=== PATIENT | male | born 1975 | race Caucasian/White ===

== ENCOUNTER 2019-05-13 11:29 | Observation (INO) | payer MEDICARE, OTHER ==
[~2019-05-13] VITALS: Ht 175.3 cm; Wt 182.1 kg
[~2019-05-13 11:29] MED LIST: ASPI-496 PO; BUPR100T11 PO; CLOP75TA52 PO; ISOS20TA3 PO; ISOS60TA36 PO; LACT1CAP35 PO; LISI-170 PO; LISI5TAB7 PO; METH500T7 PO; METH750T2 PO; METO25TA35 PO; PRED20TA PO; ROSU40TA PO; TRAZ-137 PO; TRAZ50TA66 PO
--- NOTE | 2019-05-13 11:43 | NUR ---
1130 Pt arrived to room with [facility] medic x2; received report; VSS; patient reports left sided chest pressure x 1 hr; but no sharp pain, Pt reports no respiratory distress; confirmed by SPo2 with o2> 96% on RA. Patient took own nitro x2 at home; with little relief; ASA 324 adminstered by medics en route; IV established en route and 200 mL NS adminstered. Patient transferred under own power; felt pain increase with exertion; reports history of VT with stent; pt connected to monitor; Dr. Nguyen to bedside for assessment; orders received; EKG complete reviewed by MD; CXR complete; lab at bedside. Awaiting results
[2019-05-13] MEDS ORDERED: ONDANSETRON 2MG/ML, 2ML IVPush ONE (12:00)
[2019-05-13] MEDS ORDERED: SODIUM CHLORIDE FLUSH 10ML SYR IVF ONE (12:00)
[2019-05-13] MEDS ORDERED: MORPHINE SULFATE 4 MG/ML, 1ML IVPush PRN (12:00)
[2019-05-13] MEDS ORDERED: NITROGLYCERIN SINGLE TAB 0.4 MG SL PRN (12:00)
[2019-05-13] MEDS ORDERED: ONDANSETRON 2MG/ML, 2ML ONE (12:12)
[2019-05-13 12:13] LABS: INTERNATIONAL NORMALIZED RATIO 0.95 (0.93-1.1)
[2019-05-13] MEDS ORDERED: MORPHINE SULFATE 4 MG/ML, 1ML ONE (12:13)
[2019-05-13] MEDS ORDERED: NITROGLYCERIN SINGLE TAB 0.4 MG SL ONE (12:14)
[2019-05-13 12:15] LABS: ALANINE AMINOTRANSFERASE 38 U/L (12-78); ALBUMIN 3.4 g/dL (3.4-5.0); ANION GAP 9 mmol/L (5-15); CALCIUM 8.9 mg/dL (8.5-10.1); CHLORIDE 107 mmol/L (98-107); CREATININE 1.05 mg/dL (0.7-1.3)
[2019-05-13 12:20] LABS: ALKALINE PHOSPHATASE 194 U/L (45-117); BILIRUBIN,TOTAL 0.5 mg/dL (0.2-1.0); TOTAL PROTEIN 7.3 g/dL (6.4-8.2); TROPONIN I < 0.015 ng/mL (0.000-0.045)
--- NOTE | 2019-05-13 12:26 | NUR ---
Administered nitro, morphine, zofran per MD order; vss; pt reports no new distress and morphine is helping
--- NOTE | 2019-05-13 12:59 | NUR ---
pt's arrived and is sitting at bs. lab to bs to draw. is short with staff and continues to make comments under breath. states that she would like the pt transferred to a different hospital. this rn asked pt if he would like to be transferred to a different hospital. pt replied, "No, I'm fine." vss. pt reports pain decrease to 7/10 but states that he still feels pressure in this chest and throat. no requests at this time from pt or . labs drawn successfully. awaiting results.
[2019-05-13 13:21] LABS: BASOPHILS # (AUTO) 0.12 x10^3/uL (0-0.1); BASOPHILS % (AUTO) 1 % (0-1); EOSINOPHILS # (AUTO) 0.09 x10^3/uL (0-0.4); EOSINOPHILS % (AUTO) 1 % (1-7); LYMPHOCYTES # (AUTO) 1.65 x10^3/uL (1-3.4); LYMPHOCYTES % (AUTO) 16 % (22-44); MD NO; MEAN CORPUSCULAR HEMOGLOBIN 26.8 pg (27.5-34.5); MEAN CORPUSCULAR HGB CONC 31.9 g/dL (33.2-36.2); MEAN CORPUSCULAR VOLUME 84.2 fL (81-97); MEAN PLATELET VOLUME 7.4 fL (7.4-10.4); MONOCYTES # (AUTO) 0.83 x10^3/uL (0.2-0.8); MONOCYTES % (AUTO) 8 % (2-9); NEUTROPHILS # (AUTO) 7.44 x10^3/uL (1.8-6.8); NEUTROPHILS % (AUTO) 74 % (42-75); PLATELET COUNT 342 x10^3/uL (130-400); RED CELL DISTRIBUTION WIDTH 16.8 % (9.4-14.8)
--- NOTE | 2019-05-13 13:28 | NUR ---
ALL RESUTLS BACK AT THIS TIME. CHART UP FOR RECHECK.
--- NOTE | 2019-05-13 13:38 | NUR ---
Registration was at bedside; spouse at bedside; patient sleeping; easily aroused and reports pain improving
[2019-05-13] MEDS ORDERED: SODIUM CHLORIDE FLUSH 10ML SYR IVF PRN (14:00)
--- NOTE | 2019-05-13 14:05 | NUR ---
PT AND EDUCATED THAT CURTAIN NEEDS TO REMAIN OPEN APPROXIMATELY 6 INCHES FOR VISUALIZATION OF MONITOR. PT'S CONTINUES TO CLOSE CURTAIN AFTER BEING ASKED MULTIPLE TIMES NOT TO CLOSE CURTAIN. PT AND INFORMED THAT IF CONTINUES TO IMPEDE PATIENT CARE, SHE WILL BE ASKED TO LEAVE. CHARGE AWARE OF SITUATION.
[2019-05-13] MEDS ORDERED: FERR-4 PO (14:19)
[2019-05-13] MEDS ORDERED: METO25TA35 PO (14:19)
[2019-05-13] MEDS ORDERED: ATOR-2 PO (14:19)
[2019-05-13] MEDS ORDERED: SERT50TA28 PO (14:19)
[2019-05-13] MEDS ORDERED: ASPI1CPM7 PO (14:19)
[2019-05-13] MEDS ORDERED: METF500T17 PO (14:19)
--- NOTE | 2019-05-13 14:19 | NUR ---
Med rec complete; patient resting; reports pain has improved; resting comfortably; agreeable to admit
[2019-05-13] MEDS ORDERED: CYAN100028 PO (14:21)
[2019-05-13] MEDS ORDERED: CHOL3000 PO (14:21)
--- NOTE | 2019-05-13 14:45 | NUR ---
report given to Katrina on telemetry; all questions answered plan of care covered; patient ready for transport
[2019-05-13 15:12] VITALS: BP 111/74
[2019-05-13] MEDS ORDERED: ONDANSETRON 2MG/ML, 2ML IVPush PRN (17:00)
[2019-05-13] MEDS ORDERED: ONDANSETRON ODT 4 MG PO PRN (17:00)
[2019-05-13] MEDS ORDERED: ACETAMINOPHEN 325 MG TABLET PO PRN (17:00)
[2019-05-13 17:49] LABS: TROPONIN I < 0.015 ng/mL (0.000-0.045)
[2019-05-13 17:59] LABS: HEMOGLOBIN A1C 6.2 % (4.2-6.3)
[2019-05-13 18:31] VITALS: BP 107/71
[2019-05-13] MEDS: ASPIRIN/DIPYRIDAMOLE 25MG/200MG CAPSULE PO SCH (20:28)
[2019-05-13] MEDS: METOPROLOL TARTRATE 25 MG TABLET PO SCH (20:29)
[2019-05-13] MEDS: INSULIN LISPRO 100 UNITS/ML, PEN SQ-INSULIN SCH (20:32)
[2019-05-13] MEDS ORDERED: ATORVASTATIN 80 MG TABLET PO SCH (21:00)
[2019-05-14 01:11] VITALS: BP 105/65
[2019-05-14 01:55] LABS: TROPONIN I < 0.015 ng/mL (0.000-0.045)
[2019-05-14] MEDS: INSULIN LISPRO 100 UNITS/ML, PEN SQ-INSULIN SCH (07:00)
[2019-05-14 07:06] VITALS: BP 104/73
[2019-05-14] MEDS ORDERED: CYANOCOBALAMIN 1,000 MCG TABLET PO SCH (09:00)
[2019-05-14] MEDS ORDERED: FERROUS SULFATE 325 MG TABLET PO SCH (09:00)
[2019-05-14] MEDS ORDERED: LISINOPRIL 20 MG TABLET PO SCH (09:00)
[2019-05-14] MEDS ORDERED: SERTRALINE 50MG TABLET PO SCH (09:00)
[2019-05-14] MEDS ORDERED: CHOLECALCIFEROL 1,000 UNIT TABLET PO SCH (09:00)
[2019-05-14] MEDS: ASPIRIN/DIPYRIDAMOLE 25MG/200MG CAPSULE PO SCH (09:43)
[2019-05-14] MEDS: METOPROLOL TARTRATE 25 MG TABLET PO SCH (09:44)
== END 2019-05-14 12:40 | disposition home or self-care (01) ==
LOC: ED 13:29 → EDIP 13:59 → INTOOBSV 13:59 → 5SO 15:07 → DCLOUNGE 05-14 12:37
PROVIDERS: ADMIT Hospitalist; ATTEND Hospitalist
DX: I25.110 Atherosclerotic heart disease of native coronary artery with unstable angina pectoris (principal); I10 Essential (primary) hypertension; E78.5 Hyperlipidemia, unspecified; E11.9 Type 2 diabetes mellitus without complications; F43.10 Post-traumatic stress disorder, unspecified; M54.5 Low back pain; G89.29 Other chronic pain; G47.33 Obstructive sleep apnea (adult) (pediatric); E66.01 Morbid (severe) obesity due to excess calories; I25.2 Old myocardial infarction; E78.00 Pure hypercholesterolemia, unspecified; Z68.43 Body mass index [BMI] 50.0-59.9, adult; Z79.84 Long term (current) use of oral hypoglycemic drugs; Z87.891 Personal history of nicotine dependence; Z88.8 Allergy status to other drugs, medicaments and biological substances; Z91.018 Allergy to other foods; Z90.49 Acquired absence of other specified parts of digestive tract; Z86.73 Personal history of transient ischemic attack (TIA), and cerebral infarction without residual deficits; Z95.5 Presence of coronary angioplasty implant and graft; Z79.899 Other long term (current) drug therapy
CPT/HCPCS: 36415; 71045; 80053; 82962; 83036; 83880; 84443; 84484; 85025; 85610; 85730; 93005; 96374; 96375; 99284; G0378; J2270; J2405

== ENCOUNTER 2019-11-22 19:28 | Emergency (ER) | payer MEDICARE, OTHER ==
[~2019-11-22] VITALS: Ht 175.3 cm; Wt 188.2 kg
[~2019-11-22 19:28] MED LIST changes: +ASPI1CPM7 PO; +ATOR-2 PO; +CHOL3000 PO; +CYAN100028 PO; +FERR-4 PO; +METF500T17 PO; +SERT50TA28 PO
[2019-11-22 19:32] VITALS: BP 112/67
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
[2019-11-22] MEDS ORDERED: ASPIRIN 81 MG TABLET CHEW PO ONE (20:00)
[2019-11-22] MEDS ORDERED: SODIUM CHLORIDE FLUSH 10ML SYR IVF ONE (20:00)
[2019-11-22] MEDS ORDERED: HYDROcodone/APAP 5/325 TABLET PO ONE (20:00)
[2019-11-22] MEDS ORDERED: HYDROcodone/APAP 5/325 TABLET ONE (20:01)
[2019-11-22] MEDS ORDERED: ASPIRIN 81 MG TABLET CHEW ONE (20:01)
--- NOTE | 2019-11-22 20:04 | NUR ---
PT IN RADIOLOGY
[2019-11-22 20:08] LABS: BASOPHILS # (AUTO) 0.05 x10^3/uL (0-0.1); BASOPHILS % (AUTO) 1 % (0-1); EOSINOPHILS # (AUTO) 0.24 x10^3/uL (0-0.4); EOSINOPHILS % (AUTO) 2 % (1-7); LYMPHOCYTES # (AUTO) 2.07 x10^3/uL (1-3.4); LYMPHOCYTES % (AUTO) 20 % (22-44); MD NO; MEAN CORPUSCULAR HGB CONC 32.4 g/dL (33.2-36.2); MEAN CORPUSCULAR VOLUME 86.4 fL (81-97); MONOCYTES # (AUTO) 0.91 x10^3/uL (0.2-0.8); MONOCYTES % (AUTO) 9 % (2-9); NEUTROPHILS # (AUTO) 7.11 x10^3/uL (1.8-6.8); NEUTROPHILS % (AUTO) 69 % (42-75); PLATELET COUNT 359 x10^3/uL (130-400); RED BLOOD COUNT 4.77 x10^6/uL (4.38-5.82)
[2019-11-22 20:21] LABS: ALANINE AMINOTRANSFERASE 37 U/L (12-78); ALBUMIN 3.2 g/dL (3.4-5.0); ANION GAP 9 mmol/L (5-15); CALCIUM 8.1 mg/dL (8.5-10.1); CHLORIDE 109 mmol/L (98-107); CREATININE 0.98 mg/dL (0.7-1.3)
[2019-11-22 20:25] LABS: ALKALINE PHOSPHATASE 203 U/L (45-117); BILIRUBIN,TOTAL 0.4 mg/dL (0.2-1.0); TOTAL PROTEIN 7.5 g/dL (6.4-8.2); TROPONIN I < 0.015 ng/mL (0.000-0.045)
[2019-11-22] MEDS ORDERED: METHOCARBAMOL 750 MG TABLET ONE (20:48)
[2019-11-22] MEDS ORDERED: METHOCARBAMOL 750 MG TABLET PO ONE (21:00)
== END 2019-11-22 21:01 | disposition home or self-care (01) ==
LOC: ED 20:55
DX: S40.012A Contusion of left shoulder, initial encounter (principal); S70.02XA Contusion of left hip, initial encounter; R07.89 Other chest pain; I10 Essential (primary) hypertension; E11.9 Type 2 diabetes mellitus without complications; E78.5 Hyperlipidemia, unspecified; W01.0XXA Fall on same level from slipping, tripping and stumbling without subsequent striking against object, initial encounter; Y93.89 Activity, other specified; Y92.410 Unspecified street and highway as the place of occurrence of the external cause; Y99.8 Other external cause status
CPT/HCPCS: 36415; 71046; 72050; 72110; 80053; 83880; 84484; 85025; 93005; 99284

== ENCOUNTER 2019-12-01 15:51 | Emergency (ER) | payer MEDICARE, OTHER ==
[~2019-12-01] VITALS: Ht 175.3 cm; Wt 188.6 kg
[2019-12-01] MEDS ORDERED: ACETAMINOPHEN 325 MG TABLET PO ONE (16:00)
[2019-12-01 16:36] LABS: BASOPHILS # (AUTO) 0.02 x10^3/uL (0-0.1); BASOPHILS % (AUTO) 0 % (0-1); EOSINOPHILS # (AUTO) 0.14 x10^3/uL (0-0.4); EOSINOPHILS % (AUTO) 2 % (1-7); LYMPHOCYTES # (AUTO) 0.82 x10^3/uL (1-3.4); LYMPHOCYTES % (AUTO) 12 % (22-44); MD NO; MEAN CORPUSCULAR HEMOGLOBIN 27.8 pg (27.5-34.5); MEAN CORPUSCULAR HGB CONC 32.3 g/dL (33.2-36.2); MEAN CORPUSCULAR VOLUME 86.1 fL (81-97); MEAN PLATELET VOLUME 7.5 fL (7.4-10.4); MONOCYTES # (AUTO) 0.83 x10^3/uL (0.2-0.8); MONOCYTES % (AUTO) 12 % (2-9); NEUTROPHILS # (AUTO) 5.14 x10^3/uL (1.8-6.8); NEUTROPHILS % (AUTO) 74 % (42-75); PLATELET COUNT 314 x10^3/uL (130-400); RED BLOOD COUNT 4.71 x10^6/uL (4.38-5.82); RED CELL DISTRIBUTION WIDTH 16.6 % (9.4-14.8)
[2019-12-01 16:44] LABS: ALANINE AMINOTRANSFERASE 32 U/L (12-78); ALBUMIN 3.3 g/dL (3.4-5.0); ANION GAP 6 mmol/L (5-15); CALCIUM 8.6 mg/dL (8.5-10.1); CHLORIDE 105 mmol/L (98-107); CREATININE 0.99 mg/dL (0.7-1.3)
[2019-12-01 16:49] LABS: ALKALINE PHOSPHATASE 193 U/L (45-117); BILIRUBIN,TOTAL 0.4 mg/dL (0.2-1.0); TOTAL PROTEIN 7.6 g/dL (6.4-8.2); TROPONIN I < 0.015 ng/mL (0.000-0.045)
[2019-12-01] MEDS ORDERED: ACETAMINOPHEN 325 MG TABLET ONE (17:01)
[2019-12-01 17:05] VITALS: BP 123/79
--- NOTE | 2019-12-01 17:06 | NUR ---
FROM LOBBY TO ROOM AT THIS TIME
--- NOTE | 2019-12-01 17:09 | NUR ---
PT PRESENTING TO ER FOR PRODUCTIVE COUGH X2 DAYS, FEVER, GONZALES AND UPON COMING INTO ROOM LEFT GROIN PAIN WHILE VOIDING. CONNECTED TO ALL MONITORING, TCHY HR NOTED, FEBRILE @100.8. TYLENOL GIVEN PER JAN. AT BEDSIDE. CALL LIGHT WITHIN REACH. LABS RESULTED, RAD COMPLETED. AWAITING MD ASSESSMENT AND FURTHER ORDERS
--- NOTE | 2019-12-01 17:37 | NUR ---
MD AT BEDSIDE FOR ASSESSMENT. AWAITING FURTHER ORDERS
[2019-12-01 17:49] LABS: MICROSCOPIC NOT IND
[2019-12-01 17:56] LABS: CULTURE INDICATED? NO
[2019-12-01 18:08] LABS: RAPID INFLUENZA A POSITIVE (Negative); RAPID INFLUENZA B Negative (Negative)
--- NOTE | 2019-12-01 18:42 | NUR ---
MD TO BEDSIDE FOR RECHECK. PT READY FOR DC HOME WITH AT THIS TIME
== END 2019-12-01 18:51 | disposition home or self-care (01) ==
LOC: ED 18:40
DX: J10.1 Influenza due to other identified influenza virus with other respiratory manifestations (principal); I10 Essential (primary) hypertension; E11.9 Type 2 diabetes mellitus without complications; Z87.891 Personal history of nicotine dependence
CPT/HCPCS: 36415; 71045; 80053; 81003; 83605; 83880; 84484; 85025; 87040; 87400; 93005; 99284

== ENCOUNTER 2020-05-01 13:25 | Emergency (ER) | payer MEDICARE, OTHER ==
[~2020-05-01] VITALS: Ht 175.3 cm; Wt 194.3 kg
[~2020-05-01 13:25] MED LIST changes: -TRAZ-137 PO; +TRAZ-175 PO
--- NOTE | 2020-05-01 14:25 | NUR ---
TASK RN NOTE: PT BACK TO ROOM VIA WHEELCHAIR. LEFT LEG PAIN X3 WEEKS AFTER GLF. HX OF ISCHEMIC STROKE IN MAY 2012. NO WOB NOTED. USUALLY USES WALKER OR WHEELCHAIR AT HOME.
[2020-05-01] MEDS ORDERED: HYDROcodone/APAP 5/325 TABLET PO ONE (15:00)
[2020-05-01] MEDS ORDERED: HYDROcodone/APAP 5/325 TABLET ONE (15:01)
[2020-05-01 15:54] LABS: BASOPHILS # (AUTO) 0.06 x10^3/uL (0-0.1); BASOPHILS % (AUTO) 1 % (0-1); EOSINOPHILS # (AUTO) 0.29 x10^3/uL (0-0.4); EOSINOPHILS % (AUTO) 3 % (1-7); LYMPHOCYTES # (AUTO) 1.47 x10^3/uL (1-3.4); LYMPHOCYTES % (AUTO) 13 % (22-44); MD NO; MEAN CORPUSCULAR HEMOGLOBIN 27.6 pg (27.5-34.5); MEAN CORPUSCULAR HGB CONC 32.9 g/dL (33.2-36.2); MEAN CORPUSCULAR VOLUME 83.9 fL (81-97); MEAN PLATELET VOLUME 7.8 fL (7.4-10.4); MONOCYTES # (AUTO) 0.81 x10^3/uL (0.2-0.8); MONOCYTES % (AUTO) 7 % (2-9); NEUTROPHILS % (AUTO) 77 % (42-75); PLATELET COUNT 327 x10^3/uL (130-400); RED CELL DISTRIBUTION WIDTH 16.7 % (9.4-14.8)
[2020-05-01 16:00] VITALS: BP 127/79
[2020-05-01 16:01] LABS: ALBUMIN 3.1 g/dL (3.4-5.0); ANION GAP 7 mmol/L (5-15); CALCIUM 8.3 mg/dL (8.5-10.1); CHLORIDE 106 mmol/L (98-107); CREATININE 1.01 mg/dL (0.7-1.3)
[2020-05-01 16:05] LABS: MICROSCOPIC NOT IND
== END 2020-05-01 17:16 | disposition home or self-care (01) ==
LOC: ED 15:31
DX: M25.562 Pain in left knee (principal); M79.89 Other specified soft tissue disorders; I10 Essential (primary) hypertension; E11.9 Type 2 diabetes mellitus without complications; E78.5 Hyperlipidemia, unspecified; Z86.73 Personal history of transient ischemic attack (TIA), and cerebral infarction without residual deficits
CPT/HCPCS: 36415; 80048; 81003; 82040; 85025; 99284

== ENCOUNTER 2020-07-02 13:40 | Emergency (ER) | payer MEDICARE ==
[~2020-07-02] VITALS: Ht 175.3 cm; Wt 200.0 kg
--- NOTE | 2020-07-02 14:43 | NUR ---
ASSISTANT CREDIT MANAGER: PT TO ROOM FROM RADIOLOGY
--- NOTE | 2020-07-02 15:03 | NUR ---
THIS IS A 45 YO MALE COMING IN FOR MIXTURE OF BRIGHT RED AND DARK RED BLOOD IN STOOL FIRST NOTED THIS AM, HAS BEEN PRESENT IN BOTH BM TODAY. STATES HE ALSO HAS A LARGE HEMORROID. PT ALSO C/O INTERMITTENT LIGHTHEADED AND DIZZINESS TODAY WITH OCCASIONAL NAUSEA, HAS BILATERAL LOWER QUADRANT ABD PAIN THAT IS TENDER TO PALPATION. ALL MONITORING IN PLACE, NSR ON TRIMMER MACHINE, VSS, NADN AT THIS TIME. SPOUSE IN ROOM. HEALTH ADMINISTRATOR STUDENT PLACED PIV, LABS DRAWN AND SENT. CALL LIGHT IN REACH. AWAITING RESULTS.
[2020-07-02 15:14] LABS: BASOPHILS # (AUTO) 0.03 x10^3/uL (0-0.1); BASOPHILS % (AUTO) 0 % (0-1); EOSINOPHILS # (AUTO) 0.25 x10^3/uL (0-0.4); EOSINOPHILS % (AUTO) 3 % (1-7); LYMPHOCYTES # (AUTO) 1.76 x10^3/uL (1-3.4); LYMPHOCYTES % (AUTO) 19 % (22-44); MD NO; MEAN CORPUSCULAR HGB CONC 32.6 g/dL (33.2-36.2); MEAN CORPUSCULAR VOLUME 85.9 fL (81-97); MEAN PLATELET VOLUME 7.9 fL (7.4-10.4); MONOCYTES # (AUTO) 0.47 x10^3/uL (0.2-0.8); MONOCYTES % (AUTO) 5 % (2-9); NEUTROPHILS # (AUTO) 6.97 x10^3/uL (1.8-6.8); NEUTROPHILS % (AUTO) 74 % (42-75); PLATELET COUNT 348 x10^3/uL (130-400); RED BLOOD COUNT 4.61 x10^6/uL (4.38-5.82); RED CELL DISTRIBUTION WIDTH 16.4 % (9.4-14.8)
[2020-07-02 15:23] LABS: ALANINE AMINOTRANSFERASE 64 U/L (12-78); ALBUMIN 3.2 g/dL (3.4-5.0); ANION GAP 6 mmol/L (5-15); CALCIUM 8.7 mg/dL (8.5-10.1); CHLORIDE 111 mmol/L (98-107)
[2020-07-02 15:25] LABS: ALKALINE PHOSPHATASE 184 U/L (45-117); BILIRUBIN,TOTAL 0.3 mg/dL (0.2-1.0); CREATININE 0.96 mg/dL (0.7-1.3); TOTAL PROTEIN 7.2 g/dL (6.4-8.2)
--- NOTE | 2020-07-02 15:32 | NUR ---
IN ROOM FOR EVAL
[2020-07-02] MEDS ORDERED: ONDANSETRON 2MG/ML, 2ML ONE (15:36)
[2020-07-02] MEDS ORDERED: MORPHINE SULFATE 4 MG/ML, 1ML ONE (15:36)
[2020-07-02] MEDS ORDERED: ONDANSETRON 2MG/ML, 2ML IVPush ONE (16:00)
[2020-07-02] MEDS ORDERED: MORPHINE SULFATE 4 MG/ML, 1ML IVPush PRN (16:00)
--- NOTE | 2020-07-02 16:00 | NUR ---
PATIENT MEDICATED PER EMAR, UA SENT
--- NOTE | 2020-07-02 16:07 | NUR ---
PT TO CT
[2020-07-02 16:10] LABS: MICROSCOPIC NOT IND
[2020-07-02] MEDS ORDERED: OMNIPAQUE 350 MG/ML, 150 ML BOTTLE ONE (16:28)
--- NOTE | 2020-07-02 17:00 | NUR ---
ALL RESULTS BACK, PATIETN UP FOR RECHECK. RESPIRATIONS EVEN AND UNLABORED, VSS, NADN. C/O MILD LIGHTHEADEDNESS. ERP AWARE.
--- NOTE | 2020-07-02 17:18 | NUR ---
IVF STARTED PER VERBAL ORDERS FROM DR. DORAN, WILLY IN ROOM
[2020-07-02] MEDS ORDERED: SODIUM CHLORIDE 0.9% 1,000ML IVBOLUS ONE (18:00)
[2020-07-02 18:48] VITALS: BP 110/56
--- NOTE | 2020-07-02 18:51 | NUR ---
Patient/Caregiver given discharge instructions and they have confirmed that they understand the instructions. Patient ambulatory with steady gait.
== END 2020-07-02 19:20 | disposition home or self-care (01) ==
LOC: ED 17:17
DX: K64.8 Other hemorrhoids (principal); K92.1 Melena; R10.31 Right lower quadrant pain; I10 Essential (primary) hypertension; E11.9 Type 2 diabetes mellitus without complications; E78.5 Hyperlipidemia, unspecified; Z86.73 Personal history of transient ischemic attack (TIA), and cerebral infarction without residual deficits; Z87.891 Personal history of nicotine dependence
CPT/HCPCS: 36415; 74021; 74177; 80053; 81003; 85025; 96361; 96374; 96375; 99285; J2270; J2405; J7030; Q9967

== ENCOUNTER 2020-07-30 19:30 | Emergency (ER) | payer MEDICARE ==
[~2020-07-30] VITALS: Ht 175.3 cm; Wt 200.0 kg
--- NOTE | 2020-07-30 19:45 | NUR ---
45 YEAR OLD MALE TO ED VIA [facility] FOR RIGHT HIP PAIN. HE WAS HAVING DINNER AND WENT TO GET UP FROM THE TABLE AND HEARD A POP IN HIS RIGHT HIP. HE DENIES FALLS OR AND TRAUMA. HE WAS GIVEN 100 MCG FENTANYL IN ROUTE. HE RATES HIS PAIN 6/10, SHOOTING PAIN. HE WAS TRANSFERRED TO HOSPITAL STRETCHER VIA A SLIDE BOARD WITH MULTIPLE STAFF ASSISTANCE. HE DENIES CHEST PAIN, SOB, OR LOC.
[2020-07-30] MEDS ORDERED: HYDROmorphone 2 MG/ML, 1ML IVPush PRN (21:30)
[2020-07-30] MEDS ORDERED: HYDROmorphone 1 MG/ML, 1ML INJ ONE (21:30)
[2020-07-30 22:50] VITALS: BP 131/77
== END 2020-07-30 23:05 | disposition home or self-care (01) ==
LOC: ED 22:30
DX: M25.551 Pain in right hip (principal); E78.5 Hyperlipidemia, unspecified; I10 Essential (primary) hypertension; E11.9 Type 2 diabetes mellitus without complications; Z87.891 Personal history of nicotine dependence; Z86.73 Personal history of transient ischemic attack (TIA), and cerebral infarction without residual deficits
CPT/HCPCS: 73502; 73700; 96374; 99284; J1170; 96372

== ENCOUNTER 2020-09-05 11:53 | Emergency (ER) | payer MEDICARE ==
[~2020-09-05] VITALS: Ht 175.3 cm; Wt 200.0 kg
[2020-09-05] MEDS ORDERED: ADENOSINE 6 MG/2 ML ONE (12:11)
--- NOTE | 2020-09-05 12:26 | NUR ---
PT SUCCESSFUL CONVERSION TO NSR W/ 6MG ADENOSINE. SEE PAPER CHARTING FOR EKG. PT TOLERATED WELL
[2020-09-05] MEDS ORDERED: ADENOSINE 6 MG/2 ML IVPush ONE ×2 (12:30)
[2020-09-05] MEDS ORDERED: SODIUM CHLORIDE FLUSH 10ML SYR IVF ONE (12:30)
[2020-09-05] MEDS ORDERED: SODIUM CHLORIDE 0.9% 1,000ML IVBOLUS ONE (12:30)
[2020-09-05 12:32] LABS: BASOPHILS % (AUTO) 2 % (0-1); EOSINOPHILS % (AUTO) 4 % (1-7); LYMPHOCYTES % (AUTO) 21 % (22-44); MEAN CORPUSCULAR HEMOGLOBIN 27.8 pg (27.5-34.5); MEAN CORPUSCULAR HGB CONC 32.5 g/dL (33.2-36.2); MEAN PLATELET VOLUME 8.2 fL (7.4-10.4); MONOCYTES % (AUTO) 9 % (2-9); NEUTROPHILS % (AUTO) 64 % (42-75); PLATELET COUNT 254 x10^3/uL (130-400); RED BLOOD COUNT 4.56 x10^6/uL (4.38-5.82); RED CELL DISTRIBUTION WIDTH 15.8 % (9.4-14.8)
[2020-09-05 12:41] LABS: ALANINE AMINOTRANSFERASE 66 U/L (12-78); ANION GAP 4 mmol/L (5-15); CALCIUM 8.7 mg/dL (8.5-10.1); CHLORIDE 107 mmol/L (98-107); CREATININE 1.08 mg/dL (0.7-1.3)
[2020-09-05 12:50] LABS: ALKALINE PHOSPHATASE 193 U/L (45-117); BILIRUBIN,TOTAL 0.3 mg/dL (0.2-1.0); TOTAL PROTEIN 6.9 g/dL (6.4-8.2); TROPONIN I < 0.015 ng/mL (0.000-0.045)
[2020-09-05 13:04] LABS: MD SCAN
[2020-09-05 13:16] VITALS: BP 111/71
--- NOTE | 2020-09-05 13:16 | NUR ---
PT UP ON HIS FEET. "I FEEL GOOD". DENIES ANY NAUSEA OR DIZZINESS. STEADY GAIT.
== END 2020-09-05 14:12 | disposition home or self-care (01) ==
LOC: ED 12:37
DX: I47.1 Supraventricular tachycardia (principal); R07.89 Other chest pain; I10 Essential (primary) hypertension; E11.9 Type 2 diabetes mellitus without complications; E78.5 Hyperlipidemia, unspecified; Z86.73 Personal history of transient ischemic attack (TIA), and cerebral infarction without residual deficits
CPT/HCPCS: 36415; 71045; 80053; 83880; 84443; 84484; 85025; 93005; 96361; 96374; 99285; J0153; J7030

== ENCOUNTER 2020-10-08 12:00 | Emergency (ER) | payer MEDICARE ==
[~2020-10-08] VITALS: Ht 175.3 cm; Wt 200.0 kg
--- NOTE | 2020-10-08 12:11 | NUR ---
PT HAS NO PLAN. COMPLAINING OF SOB AND WEAKNESS. PLACED ON 2L FOR COMFORT.
[2020-10-08] MEDS ORDERED: SODIUM CHLORIDE FLUSH 10ML SYR IVF ONE (12:30)
[2020-10-08 13:13] LABS: BASOPHILS % (AUTO) 1 % (0-1); EOSINOPHILS % (AUTO) 2 % (1-7); LYMPHOCYTES % (AUTO) 17 % (22-44); MEAN CORPUSCULAR HEMOGLOBIN 28.7 pg (27.5-34.5); MEAN CORPUSCULAR HGB CONC 33.2 g/dL (33.2-36.2); MEAN PLATELET VOLUME 8.1 fL (7.4-10.4); MONOCYTES % (AUTO) 8 % (2-9); NEUTROPHILS % (AUTO) 72 % (42-75); PLATELET COUNT 299 x10^3/uL (130-400); RED CELL DISTRIBUTION WIDTH 15.2 % (9.4-14.8)
[2020-10-08 13:16] LABS: MD NO
[2020-10-08 13:25] LABS: ALANINE AMINOTRANSFERASE 66 U/L (12-78); ALBUMIN 3.3 g/dL (3.4-5.0); ANION GAP 10 mmol/L (5-15); CALCIUM 8.6 mg/dL (8.5-10.1); CHLORIDE 107 mmol/L (98-107); CREATININE 1.15 mg/dL (0.7-1.3)
[2020-10-08 13:29] LABS: ALKALINE PHOSPHATASE 200 U/L (45-117); BILIRUBIN,TOTAL 0.4 mg/dL (0.2-1.0); TOTAL PROTEIN 7.6 g/dL (6.4-8.2); TROPONIN I < 0.015 ng/mL (0.000-0.045)
[2020-10-08 15:05] VITALS: BP 102/73
== END 2020-10-08 15:23 | disposition home or self-care (01) ==
LOC: ED 14:19
DX: I47.1 Supraventricular tachycardia (principal); R53.1 Weakness; R55 Syncope and collapse; R00.2 Palpitations; R07.89 Other chest pain; I10 Essential (primary) hypertension; E11.9 Type 2 diabetes mellitus without complications; E78.5 Hyperlipidemia, unspecified; Z87.891 Personal history of nicotine dependence; Z86.73 Personal history of transient ischemic attack (TIA), and cerebral infarction without residual deficits
CPT/HCPCS: 36415; 71045; 80053; 84484; 85025; 93005; 99285

== ENCOUNTER 2021-03-08 11:48 | Emergency (ER) | payer MEDICARE ==
[~2021-03-08] VITALS: Ht 175.3 cm; Wt 201.8 kg
[~2021-03-08 11:48] MED LIST changes: +ISOS20TA10 PO; -ISOS20TA3 PO; +METH-639 PO; +METH-640 PO; -METH500T7 PO; -METH750T2 PO
[2021-03-08 12:15] VITALS: BP 125/78
--- NOTE | 2021-03-08 13:15 | NUR ---
D/C INSTRUCTIONS, MEDS & F/U APPT RV'WD WITH PT, HE VERBALIZES UNDERSTANDING. RX GIVEN X2. INSTRUCTED TO RETURN TO ED FOR ANY WORSENING SYMPTOMS, OR IF NOT IMPROVING. PT LEFT ED VIA HIS OWN WC WITH SPOUSE.
== END 2021-03-08 13:36 | disposition home or self-care (01) ==
LOC: ED 13:15
DX: H66.001 Acute suppurative otitis media without spontaneous rupture of ear drum, right ear (principal); H60.502 Unspecified acute noninfective otitis externa, left ear; E11.9 Type 2 diabetes mellitus without complications
CPT/HCPCS: 99283

== ENCOUNTER 2021-04-25 18:42 | Emergency (ER) | payer MEDICARE ==
[~2021-04-25] VITALS: Ht 175.3 cm; Wt 200.0 kg
[2021-04-25 19:33] LABS: BASOPHILS % (AUTO) 1 % (0-1); EOSINOPHILS % (AUTO) 3 % (1-7); LYMPHOCYTES % (AUTO) 22 % (22-44); MEAN CORPUSCULAR HGB CONC 33.1 g/dL (33.2-36.2); MEAN PLATELET VOLUME 7.8 fL (7.4-10.4); MONOCYTES % (AUTO) 9 % (2-9); NEUTROPHILS % (AUTO) 65 % (42-75); PLATELET COUNT 284 x10^3/uL (130-400); RED CELL DISTRIBUTION WIDTH 16.3 % (9.4-14.8)
[2021-04-25 19:45] LABS: ALBUMIN 2.9 g/dL (3.4-5.0); ANION GAP 5 mmol/L (5-15); CALCIUM 8.6 mg/dL (8.5-10.1); CHLORIDE 110 mmol/L (98-107)
[2021-04-25 19:50] LABS: ALANINE AMINOTRANSFERASE 82 U/L (12-78); ALKALINE PHOSPHATASE 168 U/L (45-117); BILIRUBIN,TOTAL 0.3 mg/dL (0.2-1.0); CREATININE 1.02 mg/dL (0.7-1.3); TOTAL PROTEIN 6.7 g/dL (6.4-8.2); TROPONIN I < 0.015 ng/mL (0.000-0.045)
--- NOTE | 2021-04-25 20:54 | NUR ---
REPORT TO KIM FRANCO.
[2021-04-25 21:01] LABS: TROPONIN I < 0.015 ng/mL (0.000-0.045)
[2021-04-25 21:50] VITALS: BP 122/83
== END 2021-04-25 21:54 | disposition home or self-care (01) ==
LOC: ED 21:48
DX: R07.89 Other chest pain (principal); R11.0 Nausea; I10 Essential (primary) hypertension; E11.9 Type 2 diabetes mellitus without complications; E78.5 Hyperlipidemia, unspecified; Z87.891 Personal history of nicotine dependence
CPT/HCPCS: 36415; 71045; 80053; 83880; 84484; 85025; 93005; 99285

== ENCOUNTER 2021-05-09 10:57 | Emergency (ER) | payer MEDICARE ==
[~2021-05-09] VITALS: Ht 175.3 cm; Wt 199.7 kg
--- NOTE | 2021-05-09 11:22 | NUR ---
ASSUMED CARE OF PT. HE IS HERE FOR C/O OF WORSENING COUGH X4 DAYS, COUGH IS PRODUCTIVE W/ YELLOW/BROWN SPUTURM. VSS, NADN. CALL LIGHT W/IN REACH.
--- NOTE | 2021-05-09 11:50 | NUR ---
pt to radiology
[2021-05-09 12:34] VITALS: BP 123/80
--- NOTE | 2021-05-09 12:35 | NUR ---
Patient given discharge instructions and they have confirmed that they understand the instructions. Patient ambulatory with steady gait.
== END 2021-05-09 12:40 | disposition home or self-care (01) ==
LOC: ED 11:02
DX: J00 Acute nasopharyngitis [common cold] (principal); I10 Essential (primary) hypertension; E11.9 Type 2 diabetes mellitus without complications; Z86.73 Personal history of transient ischemic attack (TIA), and cerebral infarction without residual deficits; Z87.891 Personal history of nicotine dependence
CPT/HCPCS: 71045; 99283

== ENCOUNTER 2021-06-15 04:58 | Emergency (ER) | payer MEDICARE ==
[~2021-06-15] VITALS: Ht 175.3 cm; Wt 196.4 kg
--- NOTE | 2021-06-15 06:10 | NUR ---
PT ON RESP ISO
--- NOTE | 2021-06-15 06:11 | NUR ---
PT C/O OF NAUSEA, BODY ACHES, FEVER/CHILLS, SORE THROAT, CONGESTION, COUGH, SPIITING UP YELLOW SPUTUM, AND SWEATING. ER MD SWABBED PT FOR COVID PT REPORTS CP AND PRESSURE. PT ATTACHED TO CARD/SP02/BP MONITORS. VSS. PT APPEARS DIAPHORETIC. PT ATTEMPTING UA CURRENTLY WITH . BED IN LOW, RAILS ENGAGED. CALL LIGHT ON LAP. TM
[2021-06-15 06:15] LABS: BASOPHILS % (AUTO) 1 % (0-1); EOSINOPHILS % (AUTO) 6 % (1-7); LYMPHOCYTES % (AUTO) 15 % (22-44); MEAN CORPUSCULAR HEMOGLOBIN 29.1 pg (27.5-34.5); MEAN CORPUSCULAR HGB CONC 33.5 g/dL (33.2-36.2); MEAN PLATELET VOLUME 7.5 fL (7.4-10.4); MONOCYTES % (AUTO) 12 % (2-9); NEUTROPHILS % (AUTO) 66 % (42-75); PLATELET COUNT 269 x10^3/uL (130-400); RED BLOOD COUNT 4.61 x10^6/uL (4.38-5.82); RED CELL DISTRIBUTION WIDTH 14.8 % (9.4-14.8)
[2021-06-15] MEDS ORDERED: ACETAMINOPHEN 500 MG TABLET PO ONE (06:30)
[2021-06-15] MEDS ORDERED: ACETAMINOPHEN 500 MG TABLET ONE (06:33)
[2021-06-15 06:35] LABS: ALANINE AMINOTRANSFERASE 101 U/L (12-78); ALBUMIN 3.1 g/dL (3.4-5.0); ANION GAP 10 mmol/L (5-15); CALCIUM 7.9 mg/dL (8.5-10.1); CHLORIDE 102 mmol/L (98-107); CREATININE 1.19 mg/dL (0.7-1.3)
[2021-06-15 06:37] LABS: ALKALINE PHOSPHATASE 151 U/L (45-117); BILIRUBIN,TOTAL 0.4 mg/dL (0.2-1.0); TOTAL PROTEIN 7.6 g/dL (6.4-8.2)
--- NOTE | 2021-06-15 06:37 | NUR ---
PT OFF UNIT IN IMAGING.
[2021-06-15 06:45] LABS: MICROSCOPIC INDICATED
--- NOTE | 2021-06-15 07:01 | NUR ---
PT RESTING WITH EYES CLOSED IN BED. RESPIRATIONS EVEN AND UNLABORED AT REST SATURATING WELL ON RA. NAD NOTED AT THIS TIME. SIDE RAILS UP, CALL LIGHT IN REACH.
--- NOTE | 2021-06-15 07:21 | NUR ---
GAVE REPORT TO SUSSY ALVAREZ. TRANSFER OF CARE.
[2021-06-15] MEDS ORDERED: KETOROLAC 30 MG/1 ML IM ONE (08:00)
[2021-06-15] MEDS ORDERED: KETOROLAC 60 MG/2 ML ONE (08:19)
[2021-06-15 08:28] VITALS: BP 110/70
== END 2021-06-15 08:30 | disposition home or self-care (01) ==
LOC: ED 06:14
DX: U07.1 COVID-19 (principal); B34.9 Viral infection, unspecified; R51.9 Headache, unspecified; R07.89 Other chest pain; I10 Essential (primary) hypertension; E11.9 Type 2 diabetes mellitus without complications; I47.1 Supraventricular tachycardia; Z87.891 Personal history of nicotine dependence; Z86.73 Personal history of transient ischemic attack (TIA), and cerebral infarction without residual deficits
CPT/HCPCS: 36415; 70450; 71045; 80053; 81001; 83605; 84145; 85025; 87086; 93005; 96372; 99285; J1885; U0003; U0005

== ENCOUNTER 2021-06-20 19:39 | Emergency (ER) | payer MEDICARE ==
[~2021-06-20] VITALS: Ht 175.3 cm; Wt 197.0 kg
[2021-06-20 21:36] LABS: BASOPHILS % (AUTO) 1 % (0-1); EOSINOPHILS % (AUTO) 4 % (1-7); LYMPHOCYTES % (AUTO) 16 % (22-44); MEAN CORPUSCULAR HEMOGLOBIN 29.2 pg (27.5-34.5); MEAN CORPUSCULAR HGB CONC 33.4 g/dL (33.2-36.2); MEAN PLATELET VOLUME 7.9 fL (7.4-10.4); MONOCYTES % (AUTO) 7 % (2-9); NEUTROPHILS % (AUTO) 73 % (42-75); PLATELET COUNT 253 x10^3/uL (130-400); RED BLOOD COUNT 5.07 x10^6/uL (4.38-5.82); RED CELL DISTRIBUTION WIDTH 14.5 % (9.4-14.8)
[2021-06-20 21:42] LABS: INTERNATIONAL NORMALIZED RATIO 1.01 (0.93-1.1); PROTHROMBIN TIME 10.8 Seconds (9.6-11.5)
[2021-06-20 21:51] LABS: CHLORIDE 98 mmol/L (98-107)
[2021-06-20 22:01] LABS: ANION GAP 9 mmol/L (5-15); CALCIUM 9.4 mg/dL (8.5-10.1)
[2021-06-20 22:02] LABS: ALANINE AMINOTRANSFERASE 131 U/L (12-78); ALBUMIN 3.2 g/dL (3.4-5.0); ALKALINE PHOSPHATASE 151 U/L (45-117); BILIRUBIN,TOTAL 0.5 mg/dL (0.2-1.0); CREATININE 1.11 mg/dL (0.7-1.3); TOTAL PROTEIN 8.3 g/dL (6.4-8.2)
--- NOTE | 2021-06-20 23:08 | NUR ---
TASK RN: PT. TO ROOM FROM LOBBY VIA W/C. SPO2 AND CARDIAC MONITORS CONNECTED.
--- NOTE | 2021-06-20 23:27 | NUR ---
PT C/O SOB AND CHEST PAIN. MEDICAL HX SIGNIFICANT FOR OK, MULTIPLE CVA'S, MORBID OBESITY. SPO2 94-95% ON RA AT THIS TIME, HR 120s, PT SPEAKING IN FULL SENTENCES. RV'WD POC WITH PT. AT BS.
--- NOTE | 2021-06-20 23:33 | NUR ---
ERP AT BS.
[2021-06-20 23:59] LABS: MICROSCOPIC NOT IND
[2021-06-21] MEDS ORDERED: KETOROLAC 15 MG/1ML IVPush ONE
--- NOTE | 2021-06-21 | NUR ---
ERP WAS IN TO DISCUSS MONOCLONAL ANTIBODY TX WITH PT. REPORTED TO SHAMEKA ALVAREZ.
[2021-06-21] MEDS ORDERED: KETOROLAC 30 MG/1 ML ONE (00:06)
[2021-06-21] MEDS ORDERED: METOPROLOL PEG (00:17)
[2021-06-21] MEDS ORDERED: OMEP-110 PO (00:18)
[2021-06-21] MEDS ORDERED: TAMSULOSIN (00:18)
[2021-06-21] MEDS ORDERED: TRAZODONE (00:19)
--- NOTE | 2021-06-21 00:19 | NUR ---
REPORT GIVEN FROM KIM WANG. PT RESTING IN ROOM. VS STABLE. SUSPENDER MAKER ON. SINUS TACH NOTED. CALL LIGHT IN PLACE. WILL CONTINUE TO MONITOR.
--- NOTE | 2021-06-21 00:50 | NUR ---
PT SIGNED CONSENT FOR MONOCLONAL ANTIBODY TX. DR GIRON HAS EXPLAINED TREATMENT. PT AGREES.
[2021-06-21] MEDS ORDERED: FILTER 0.22 MICRON IV ONE (01:00)
[2021-06-21] MEDS ORDERED: CASIRIVIMAB 600 MG, IMDEVIMAB (REGN10987) 600 MG in SODIUM CHLORIDE 0.9% 250 ML IVPB ONE (01:00)
[2021-06-21] MEDS ORDERED: ACETAMINOPHEN 500 MG TABLET ONE (01:20)
--- NOTE | 2021-06-21 01:23 | NUR ---
DR GIRON HAS UPDATED PATIENT
[2021-06-21] MEDS ORDERED: ACETAMINOPHEN 500 MG TABLET PO ONE (01:30)
--- NOTE | 2021-06-21 01:56 | NUR ---
BEDSIDE REPORT GIVEN TO KIM WILHELM
--- NOTE | 2021-06-21 02:24 | NUR ---
IV INFUSION COMPLETE. NO ADVERSE REACTION NOTED. WILL CONTINUE TO MONITOR PT FOR 1 HR POST INFUSION.
--- NOTE | 2021-06-21 03:00 | NUR ---
WENT TO CHECK ON PT AND PT HEART RATE ELEVATED TO 150BPM. REPEAT EKG OBTAINED AT THIS TIME. PT DIAPHORETIC AND REPORTS NOT FEELING GOOD. NOTIFIED PROVIDER. NO NEW ORDERS AT THIS TIME. WILL CONTINUE TO MONITOR PT.
[2021-06-21] MEDS ORDERED: SODIUM CHLORIDE 0.9% 1,000ML IVBOLUS ONE ×2 (03:30)
[2021-06-21] MEDS ORDERED: METOPROLOL 1 MG/ML, 5ML ONE ×2 (04:27→05:15)
[2021-06-21] MEDS ORDERED: METOPROLOL 1 MG/ML, 5ML IVPush ONE ×2 (04:30→05:30)
--- NOTE | 2021-06-21 05:20 | NUR ---
NOTIFIED PROVIDER OF PT HEART RATE STILL ELEVATED. 143BPM. PT REPROTS FEELING BETTER. SEE CPOE FOR NEW ORDERS. PER MD ORDER HE IS OKAY WITH ADMINISITERING THE LOPRESSOR WITH BP 97/60
--- NOTE | 2021-06-21 06:58 | NUR ---
REPORT GIVEN TO KIM VICKERS. CARE TRANSFERED.
[2021-06-21] MEDS ORDERED: ADENOSINE 6 MG/2 ML ONE (07:50)
--- NOTE | 2021-06-21 07:58 | NUR ---
At time of transfer of care plan to admit pt. At approx 0745 plan changed after MD Morillo consulted with cardiology and now to try adenosine. Pt aware. Report to KIM Odonnell, to assume care.
[2021-06-21] MEDS ORDERED: ADENOSINE 6 MG/2 ML IVPush ONE (08:00)
--- NOTE | 2021-06-21 08:08 | NUR ---
ADENOSINE PUSHED 6MG/2ML WITH 20ML FLUSH FOLLOWING IN LEFT AC IV. DR. GIRON AT BEDSIDE PATIENT ON PADS WITH CRASH CART AT BEDSIDE. AMBU BAG READILY AVAILABLE PATIENT TOLERATED PROCEDURE WELL WENT FROM 150'S TO 98 SR. PATIENT AOX4 NAD AT THIS TIME.
--- NOTE | 2021-06-21 08:09 | NUR ---
LATE ENTRY: BEDSIDE REPORT RECIEVED FROM [place]. ASSUMED CARE. PER DR. GIRON WILL ADMINISTERED ADENOSINE.
[2021-06-21 08:50] VITALS: BP 114/78
--- NOTE | 2021-06-21 08:52 | NUR ---
PATIENT DISCHARGE WITH STEADY GAIT. AMBULATED WITH CANE. PATIENT HAD BM PRIOR TO LEAVING. IV DC WITH TIP INTACT REMOVED BY COUNTY BAILIFF STUDENTMADISON WITH THIS RN AT PRESENT
== END 2021-06-21 09:11 | disposition home or self-care (01) ==
LOC: ED 23:21 → UNDOADMOB 06-21 05:18 → EDIP 06-21 05:18
DX: U07.1 COVID-19 (principal); J06.9 Acute upper respiratory infection, unspecified; I25.2 Old myocardial infarction; I10 Essential (primary) hypertension; E11.9 Type 2 diabetes mellitus without complications; E78.5 Hyperlipidemia, unspecified; Z86.73 Personal history of transient ischemic attack (TIA), and cerebral infarction without residual deficits; Z87.891 Personal history of nicotine dependence
CPT/HCPCS: 36415; 71045; 80053; 81003; 83605; 84145; 85025; 85610; 87040; 93005; 96374; 96375; 96376; 99285; J0153; J1885; J7030; J7050; M0243; 96361

== ENCOUNTER 2021-06-28 16:10 | Emergency (ER) | payer MEDICARE ==
[~2021-06-28] VITALS: Ht 175.3 cm; Wt 195.4 kg
[~2021-06-28 16:10] MED LIST changes: +METOPROLOL PEG; +OMEP-110 PO; +TAMSULOSIN; +TRAZODONE
--- NOTE | 2021-06-28 16:34 | NUR ---
commission sales associate: EKG done in triage
--- NOTE | 2021-06-28 17:10 | NUR ---
FIRST CONTACT: SOB, +productive cough, chest pressure. +COVID. PT TO ROOM VIA WHEEL CHAIR. POSTIONED TO COMFORT IN BED. ATTACHED TO MONITORS. VSS. EDUARDO.
--- NOTE | 2021-06-28 17:44 | NUR ---
DR. CAMPBELL TO BEDSIDE FOR EVALUATION.\. SLOANS. RENATON.
--- NOTE | 2021-06-28 18:49 | NUR ---
REPORT TO CHOCO ALVAREZ.
--- NOTE | 2021-06-28 19:19 | NUR ---
RECIEVED REPORT FROM KIM MORALES. FIRST CONTACT WITH PT. NADN. ROMO AT BEDSIDE DISCUSSING PLAN OF CARE WITH PT. WILL CONTINUE TO MONITOR. VSS.
--- NOTE | 2021-06-28 19:49 | NUR ---
pt walking O2 95%.
[2021-06-28 20:26] VITALS: BP 117/86
== END 2021-06-28 20:49 | disposition home or self-care (01) ==
LOC: ED 16:40
DX: U07.1 COVID-19 (principal); J12.82 Pneumonia due to coronavirus disease 2019; R94.31 Abnormal electrocardiogram [ECG] [EKG]; E11.9 Type 2 diabetes mellitus without complications; Z86.73 Personal history of transient ischemic attack (TIA), and cerebral infarction without residual deficits; E78.5 Hyperlipidemia, unspecified; Z87.891 Personal history of nicotine dependence; Z88.8 Allergy status to other drugs, medicaments and biological substances; Z88.6 Allergy status to analgesic agent
CPT/HCPCS: 71045; 93005; 99285